=== PATIENT | female | born 1990 | race African-American/Black ===

== ENCOUNTER 2020-06-18 14:13 | Emergency (ER) | payer OTHER ==
[2020-06-18 15:45] LABS: Bilirubin 1+ (Negative); Blood, Urine Negative (Negative); Clarity Slightly Cloudy (Clear); Glucose, Urine (Dipstick) Normal (Negative); Ketone, Urine 5 mg/dL (Negative); Leukocyte 25 (Negative); Nitrite Negative (Negative); Protein, Urine (Dipstick) 15 mg/dl (Neg-Trace)
[2020-06-18 16:14] LABS: Bacteria/HPF 2+ HPF (None Seen); RBC/HPF 0-3 HPF (0-3); WBC/HPF 0-3 HPF (0-3)
[2020-06-18 16:15] LABS: Calcium Oxalate Crystals 1+ HPF (None Seen)
== END 2020-06-18 16:28 | disposition home or self-care (01) ==
LOC: CSHERS 14:13
DX: O26.891 Other specified pregnancy related conditions, first trimester (principal); R10.32 Left lower quadrant pain; Z3A.17 17 weeks gestation of pregnancy
CPT/HCPCS: 81003; 81015; 87086

== ENCOUNTER 2020-07-15 22:22 | Day surgery (SDC) | payer OTHER ==
[2020-07-15 22:52] VITALS: BMI 36.3
[2020-07-15] MEDS ORDERED: hydrALAZINE 20 MG/ML VIAL SLOW IVP PRN (23:02)
[2020-07-15] MEDS ORDERED: Acetaminophen 500 MG TAB PO SCH (23:59)
== END 2020-07-16 00:06 | disposition home or self-care (01) ==
LOC: CSHLD/OP 22:22
PROVIDERS: ATTEND Family Medicine
DX: O99.891 Other specified diseases and conditions complicating pregnancy (principal); R10.9 Unspecified abdominal pain; R51.9 Headache, unspecified; Z3A.21 21 weeks gestation of pregnancy
CPT/HCPCS: 99283